=== PATIENT | male | born 1970 | race Caucasian/White ===

== ENCOUNTER 2016-12-16 15:15 | Emergency (ER) | payer SELFPAY ==
[~2016-12-16] VITALS: Ht 152.4 cm; Wt 112.5 kg
[2016-12-16 15:24] VITALS: BP 130/63
[2016-12-16] MEDS ORDERED: ZOCOR20 MG PO (15:30)
[2016-12-16] MEDS ORDERED: ZESTRIL20 MG PO (15:30)
[2016-12-16] MEDS ORDERED: GLUCOPHAGE500 MG PO (15:30)
--- NOTE | 2016-12-16 16:16 | NUR ---
Pt taken to bed 5.
--- NOTE | 2016-12-16 16:26 | NUR ---
X-Ray at bedside.
--- NOTE | 2016-12-16 16:35 | NUR ---
Dr. Chatterjee evaluating patient at bedside.
--- NOTE | 2016-12-16 16:36 | NUR ---
46/M presents to ED for evaluation of chest pain that started last night. Pt states "I thought it was heart burn." Pt explains that he took some antacids Tums last night with no improvement.Pt states "Usually I just take an antacid and it goes away. Last night it didn't." Pt describes pain as burning, radiating to left arm, 2/10, Pt expresses left arm pain at a 5/10. Denies N/V/D. Denies fever or chills. Denies shortness of breath. Respirations even and unlabored. O2 saturation 98% on room air. Patient is AOX4, with clear speech, ambulates with steady gait. is at bedside. VSS. Pt placed into a gown, placed on patient monitor, pulse oximetry and blood pressure monitoring.
[2016-12-16] MEDS ORDERED: NITROGLYCERIN 2% 1 GM PKT TP ONE (16:40)
[2016-12-16] MEDS ORDERED: ASPIRIN 81 MG TAB.CHEW PO ONE (16:40)
[2016-12-16] MEDS ORDERED: PANTOPRAZOLE 40 MG TABEC PO ONE (16:45)
[2016-12-16] MEDS ORDERED: MORPHINE SULFATE 2 MG/ML SYR IVP ONE (17:35)
--- NOTE | 2016-12-16 17:35 | NUR ---
Patient appears to be resting comfortably in bed. Vital Signs within normal limits. Respirations even and unlabored.
--- NOTE | 2016-12-16 17:58 | NUR ---
Pt refusing to have the morphine at this time. Pt states "I actually feel better." Dr. Chatterjee made aware.
[2016-12-16 19:02] VITALS: BP 135/70
--- NOTE | 2016-12-16 19:03 | NUR ---
Patient discharged with v/s stable. Written and verbal after care instructions given and explained. Patient alert, oriented and verbalized understanding of instructions. Ambulatory with steady gait. All questions addressed prior to discharge. ID band removed. Patient advised to follow up with PMD. Rx of MAALOX, TRAMADOL, ASPIRIN, AND PRILOSEC given. Patient educated on indication of medication including possible reaction and side effects. Opportunity to ask questions provided and answered.
--- NOTE | 2016-12-16 19:04 | NUR ---
Chart checked and completed.
== END 2016-12-16 19:03 | disposition home or self-care (01) ==
LOC: MED 15:15
DX: K21.9 Gastro-esophageal reflux disease without esophagitis (principal); R03.0 Elevated blood-pressure reading, without diagnosis of hypertension
CPT/HCPCS: 36415; 71010; 80053; 84484; 85025; 85610; 85730; 93005; 99285; J2270; Q0092